=== PATIENT | female | born 1970 | race Hispanic/Latino ===

== ENCOUNTER → 2024-05-18 | Outpatient (CLI) | payer OTHER ==
--- NOTE | 2024-05-23 19:45 | HMCSR ---
APPROVED REPORT EXAM: Two-dimensional and M-mode echocardiogram with Doppler and color Doppler. INDICATION ICD: R60.9 Edema, unspecified 2D Dimensions RVDd3.5 cmLVEF(%)54.4 (>50%)LVED Vol(simp.)139.0 mL IVSd1.2 (0.7-1.1cm)FS(%)28 %LVES Vol(simp.)59.0 mL LVDd4.5 (3.8-5.6cm)Ao Root(2D)3.8 (2.0-3.7cm)LVEF(%, simp.)57 % PWd1.2 (0.7-1.1cm)LVOT diam2.3 (1.8-2.4cm)LA ESV INDEX (BP)29.58 mL/m2 LVDs3.2 (2.5-4.0cm)IVC diam1.7 cm Deformation Strain Apical 4-18.5 % Apical 2-18.7 % Apical 3-20.3 % Global Strain-19.2 % Aortic Valve AoV Vmax1.8 m/[place] GR13.5 mmHgLVOT Vmax1.5 m/s AoV VTI0.4 mAo Mean GR7.7 mmHgLVOT VTI0.31 m SAUL (VMAX)2.8 cm2AVA (VTI) 2.8 cm2 Mitral Valve MV E Vmax74.4 cm/sDECEL Yagh004 ms MV A Vmax93.0 cm/sP 1/2 T58 ms E/A ratio0.8MVA (PHT)3.8 cm2 TDI E/E' Gdvbjy63.3E/E' Lateral7.1 Pulmonary Valve PV Vmax1.4 m/sPV VTI0.29 mPV Mean GR5 mmHg PV Peak GR7.7 mmHg Tricuspid Valve TR Vmax1.9 m/sRAP (EST) 3 gmGzTVXK00.7 mmHg TR Peak GR14.7 mmHg Left Ventricle The left ventricle structure and function is normal. There is normal LV segmental wall motion. There is mild concentric left ventricular hypertrophy. LVEF is 70%. GLS rate is -19.2%. Grade 1 diastolic d ysfunction Right Ventricle The right ventricle is normal size. The right ventricular systolic function is normal. Atria The left atrium size is normal. The right atrium size is normal. Aortic Valve Aortic valve is trileaflet. Aortic valve leaflets are sclerotic but open well. Trace aortic regurgita tion. There is no aortic valvular stenosis. Mitral Valve The mitral valve is mildly thickened. Mitral annular calcification is mild. Mitral regurgitation is t race. There is no mitral valve stenosis. Tricuspid Valve The tricuspid valve leaflets appear normal. There is trace tricuspid regurgitation. Pulmonic Valve The pulmonic valve leaflets are thin and pliable; valve motion is normal. There is trace pulmonic michelle vular regurgitation. Great Vessels Aortic root is mildly dilated. The IVC is normal in size and collapses >50% with inspiration. Pericardium The pericardium appears normal. Conclusion LVEF is 70%. GLS rate is -19.2%.
== END | disposition home or self-care (01) ==
LOC: SHCH 08:15
PROVIDERS: ATTEND Internal Medicine Cardiovascular Disease
DX: I08.0 Rheumatic disorders of both mitral and aortic valves (principal); R60.9 Edema, unspecified
CPT/HCPCS: 93306; 93356; 93925; 93970; 93975

== ENCOUNTER → 2024-06-04 | Outpatient (CLI) | payer OTHER ==
[2024-06-04] MEDS: REGADENOSON 0.4 MG/5 ML PF SYG IVP ONE (16:19)
--- NOTE | 2024-06-05 09:32 | HMCSR ---
APPROVED REPORT Height: 5 ft 5in Weight: 275 lbs TEST INDICATIONS OTHER FORMS OF DYSPNEA Patient confirmed negative for . The imaging protocol used to acquire images was Rest Tc-99m/stress Tc-99m 1 day Consent: The procedure was explained and understood by the patient. Informerd consent was witnessed Darinel RAMIREZ RN First, low dose rest was performed then high dose stress. RESTING DATA: The resting ekg shows: NSR Rest SPECT myocardial perfusion imaging was performed in supine position 90 minutes following the int ravenous injection of 10.5 mCi of Tc-99 Sestamibi. Time of rest injection: 09:11: Date: 06/04/2024 Time of rest imagin:41: Date: 06/04/2024 PHARMACOLOGIC STRESS: Pharmacologic stress test was performed by injecting regadenoson 0.4 mg IV push followed by the intra venous injection of 32.5 mCi of Tc-99 Sestamibi. Time of stress injection: 11:01: Date: 06/04/2024 Time of stress imagin:36: Date: 06/04/2024 Heart Rate at time of stress injection: 74 bpm. Gated Stress SPECT was performed 95 minutes after stress injection. The images were gated to evaluate regional wall motion and calculate left ventricular ejection fracti on. STRESS DETAILS Reason for Termination: Infusion complete Stress Symptoms: Dyspnea, WARM Max HR Achieved: 95 bpm % of APMHR Achieved: 58 Max Blood Pressure: 173/85 mmHg Stress ECG: NSR Study quality was good. Lung uptake was Normal. Artifact: No artifact LEFT VENTRICLE Size: The left ventricular size is normal. Systolic Function:The left ventricular systolic function is normal. Wall Motion: No regional wall motion abnormalities noted. The left ventricular ejection fraction was calculated to be 57%.TID = 1.14. LV PERFUSION Moderately severe mid and aical anterior reversible defect consistent with ischemia. RV Size/Shape Normal RV Conclusion The left ventricular ejection fraction was calculated to be 57%.TID = 1.14. Moderately severe mid and aical anterior reversible defect consistent with ischemia. Low risk, abnormal.
== END | disposition home or self-care (01) ==
LOC: SHCH 08:49
PROVIDERS: ATTEND Internal Medicine Cardiovascular Disease
DX: R06.09 Other forms of dyspnea (principal)
CPT/HCPCS: 78452; 93017; J2785; A9500 ×2